=== PATIENT | male | born 1985 | race African-American/Black ===

== ENCOUNTER 2016-10-22 11:11 | Emergency (ER) | payer MEDICAID, OTHER ==
[~2016-10-22] VITALS: Ht 165.1 cm; Wt 57.6 kg
[2016-10-22 11:25] VITALS: BP 149/47
== END 2016-10-22 14:30 | disposition home or self-care (01) ==
LOC: ER 11:14
DX: R63.0 Anorexia (principal); Z76.0 Encounter for issue of repeat prescription; Z68.21 Body mass index [BMI] 21.0-21.9, adult